=== PATIENT | male | born 1935 | race Caucasian/White ===

== ENCOUNTER 2016-12-15 16:41 | Inpatient (IN) | payer OTHER, MEDICARE ==
[~2016-12-15] VITALS: Ht 172.7 cm; Wt 78.0 kg
[~2016-12-15 16:41] MED LIST: ATENOLOL25 MG PO; DOXAZOSIN MESYLA4 MG PO; FLUVIRIN 245 MCG/0.1 IM
--- NOTE | 2016-12-15 16:52 | NUR ---
PT TO ED FOR C/C OF FALL A FEW HOURS AGO. PT FELL DOWN APPROX 3 OR 4 STEPS AND LANDED FLAT ON HIS BACK. PT DENIES LOC, DENIES HEAD STRIKE. PT HAS BACK PAIN, LEFT ELBOW HEMATOMA WITH LAC THAT HASN'T STOPPED BLEEDING. +BLEEDING IN TRIAGE BUT WELL CONTROLLED.
--- NOTE | 2016-12-15 17:00 | NUR ---
SPOKE WITH ANDREA CASTAÑEDA TO ORDER XRAYS OF RIBS.
--- NOTE | 2016-12-15 17:29 | NUR ---
PT AMBULATED TO AND FROM XRAY WITH STEADY GAIT.
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
--- NOTE | 2016-12-15 17:48 | NUR ---
PATIENT UNSURE OF LAST TETNUS SHOT.
--- NOTE | 2016-12-15 17:59 | RADIOLOGY REPORT ---
EXAMINATION: XR RIBS, BILATERAL CLINICAL INFORMATION: Evaluate for a fracture status post fall. COMPARISON: Multiple priors, most recent CT chest dated 04/15/2014. TECHNIQUE: An AP view of the chest as well as oblique views of the right as well as the left ribs were obtained. AP, bilateral oblique, and lateral views of the left elbow were obtained. FINDINGS: RIBS: Lungs are clear. No consolidation, pneumothorax, or pleural effusion. The cardiomediastinal silhouette and pulmonary vasculature are normal. There is a nondisplaced fracture at the posterolateral aspect of the left seventh rib. No additional fracture is identified. No osseous erosion. LEFT ELBOW: There is a sagittally oriented fracture of the medial epicondyle with approximately 2-3 mm proximal displacement of the fracture fragment. Anterior displacement is noted on the oblique view. No additional fracture is identified. There is mild spurring at the proximal ulna and proximal radius. There is no osseous erosion. There is a small joint effusion. Focal soft tissue swelling is seen overlying the medial epicondyle. There is no abnormal soft tissue calcification. IMPRESSION: RIBS: 1. Nondisplaced fracture at the posterolateral aspect of the left seventh rib. LEFT ELBOW: 1. Mildly displaced, sagittally oriented fracture of the medial epicondyle. Overlying soft tissue swelling. 2. Small joint effusion. 3. Mild ulnotrochlear and radiocapitellar osteoarthritis.
[2016-12-15] MEDS ORDERED: ESCITALOPRAM OX10 MG PO (18:05)
[2016-12-15] MEDS ORDERED: ATENOLOL25 M1 PO (18:06)
[2016-12-15] MEDS ORDERED: DOXAZOSIN MESYLA4 M1 PO (18:06)
[2016-12-15] MEDS ORDERED: AMLODIPINE BES2.5 M1 PO (18:07)
[2016-12-15] MEDS ORDERED: TRAZODONE HCL50 M1 PO (18:08)
[2016-12-15] MEDS ORDERED: ASPIRIN EC325 M2 PO (18:08)
--- NOTE | 2016-12-15 19:05 | NUR ---
labs drawn and sent (blue, 2 gold, lav, pink, curry)
[2016-12-15 19:11] LABS: ABSOLUTE BASOPHIL COUNT 0 /CUMM (0.0-0.2); ABSOLUTE EOSINOPHIL COUNT 0 /CUMM (0.0-0.7); ABSOLUTE GRANULOCYTE CT 13.1 /CUMM (1.4-6.5); ABSOLUTE LYMPH COUNT 0.4 /CUMM (1.2-3.4); ABSOLUTE MONOCYTE COUNT 0.6 /CUMM (0.10-0.60); BASOPHIL % 0.1 % (0.0-2.0); EOSINOPHIL % 0.2 % (0-5); HEMATOCRIT 41.2 % (42-52); MEAN CORPUSCULAR HGB 34.2 PG (27.0-31.0); MEAN CORPUSCULAR HGB CONC 33.9 G/DL (33.0-37.0); MEAN CORPUSCULAR VOLUME 100.9 FL (80.0-94.0); MEAN PLATELET VOLUME 7.7 FL (7.4-10.4); PLATELET COUNT 230 /CUMM (130-400); RBC DISTRIBUTION WIDTH 13.9 % (11.5-14.5); RED BLOOD CELL CT 4.08 /CUMM (4.70-6.10)
--- NOTE | 2016-12-15 19:23 | Cons- Orthopedic ---
EMIL CASTILLO 12/15/161916: General Information and HPI Consulting Request Date of Consult: 12/15/16 Requested By: Emergency department staff Reason for Consult: Left distal humerus open fracture Source of Information: patient Exam Limitations: no limitations History of Present Illness: 81-year-old male status post mechanical fall earlier today presents to the emergency department complaining of left back and arm pain. The patient was seen he reports bringing groceries in from the house when he fell landing on his left side. He does not recall how he fell but denies any prefall dizziness, palpitations, headaches or change in vision. He denies any post fall loss of consciousness. He said after the fall it was difficult for him to get up because he could not catch his breath. Once he is able to catch his breath he is able to get up and then realized he also injured his left elbow. He does remember hitting his elbow during the fall. He had no other complaints the current time. Allergies/Medications Allergies: Coded Allergies: No Known Allergies (12/15/16) Home Med List: Amlodipine Besylate 2.5 MG TABLET 1 TAB PO DAILY HEART/BP (Reported) Aspirin (Ecotrin*) 325 MG TABLET.DR 1 TAB PO 2XW HEART/BLOOD (Reported) Atenolol 25 MG TABLET 0.5 TAB PO DAILY HEART/BP (Reported) Doxazosin Mesylate 4 MG TABLET 1 TAB PO DAILY BP (Reported) Escitalopram Oxalate 10 MG TABLET 1 TAB PO DAILY MENTAL HEALTH (Reported) Trazodone HCl 50 MG TABLET 1 TAB PO QPM SLEEP (Reported) Past History Medical History Cardiovascular: hypertension Psychiatric: insomnia Other Medical Hx: Hard of hearing Surgical History Pertinent Surgical History: hernia repair-inguinal, lipoma resection 2 Psychosocial History Where Do You Live? Home Who Do You Live With? spouse Services at Home: None ETOH Use: occasional use Illicit Drug Use: denies illicit drug use Functional Ability ADLs Independent: dressing, eating, toileting, bathing. Ambulation: independent Employment History Employment: Retired Review of Systems Review of Systems Constitutional: Denies: weakness. Cardiovascular: Denies: chest pain, palpitations. Respiratory: Denies: cough, short of breath. Genitourinary: Denies: dysuria. Exam & Diagnostic Data Vital Signs and I&O Vital Signs Date Time Temp Pulse Resp B/P B/P Pulse O2 O2 Flow FiO2 Mean Ox Delivery Rate 12/157 69 20 178/84 91 Room Air 12/15 1647 98.5 67 15 173/89 93 Room Air Room Air Laboratory Tests 12/15 1902 Chemistry Sodium (137 - 145 mmol/L) 137 Potassium (3.5 - 5.1 mmol/L) 4.1 Chloride (98 - 107 mmol/L) 102 Carbon Dioxide (22 - 30 mmol/L) 24 Anion Gap (5 - 16) 11 BUN (9 - 20 mg/dL) 25 H Creatinine (0.7 - 1.2 mg/dL) 0.6 L Estimated GFR (>60 ml/min) > 60 BUN/Creatinine Ratio (7 - 25 %) 41.7 H Glucose (65 - 99 mg/dL) 108 H Calcium (8.4 - 10.2 mg/dL) 8.7 Total Bilirubin (0.2 - 1.3 mg/dL) 0.8 AST (17 - 59 U/L) 41 ALT (21 - 72 U/L) 53 Alkaline Phosphatase (< 127 U/L) 68 Total Protein (6.3 - 8.2 g/dL) 6.1 L Albumin (3.5 - 5.0 g/dL) 3.8 Globulin (1.9 - 4.2 gm/dL) 2.3 Albumin/Globulin Ratio (1.1 - 2.2 %) 1.7 Hematology CBC w Diff NO MAN DIFF REQ WBC (4.8 - 10.8 /CUMM) 14.1 H RBC (4.70 - 6.10 /CUMM) 4.08 L Hgb (14.0 - 18.0 G/DL) 14.0 Hct (42 - 52 %) 41.2 L MCV (80.0 - 94.0 FL) 100.9 H MCH (27.0 - 31.0 PG) 34.2 H RDW (11.5 - 14.5 %) 13.9 Plt Count (130 - 400 /CUMM) 230 MPV (7.4 - 10.4 FL) 7.7 Gran % (42.2 - 75.2 %) 93.0 H Lymphocytes % (20.5 - 51.1 %) 2.5 L Monocytes % (1.7 - 9.3 %) 4.2 Eosinophils % (0 - 5 %) 0.2 Basophils % (0.0 - 2.0 %) 0.1 Absolute Granulocytes (1.4 - 6.5 /CUMM) 13.1 H Absolute Lymphocytes (1.2 - 3.4 /CUMM) 0.4 L Absolute Monocytes (0.10 - 0.60 /CUMM) 0.6 Absolute Eosinophils (0.0 - 0.7 /CUMM) 0 Absolute Basophils (0.0 - 0.2 /CUMM) 0 PUBS MCHC (33.0 - 37.0 G/DL) 33.9 Chest and rib x-rays showing1. Nondisplaced fracture at the posterolateral seventh rib X-rays of left upper extremity showing a distal humerus fracture involving the medial epicondyle Physical Exam: Gen.: Alert and in no obvious distress Skin: Warm and dry without jaundice Head: Normocephalic and atraumatic Neck: Supple with no lymphadenopathy Chest: With some palpable tenderness posterior left chest Cardiac: S1-S2 regular Pulmonary: Bilateral breath sounds were equal with good exchange there were no wheezes, rales, or rhonchi. Abdomen: Soft, nontender, bowel sounds positive. Extremities: Left upper extremity with approximately 2-1/2 cm laceration to the medial epicondyle. There was moderate surrounding edema. The elbow joint was tender to palpation. Gross motor and sensory were intact and there was a palpable radial pulse Bilateral lower extremities are warm without calf tenderness or significant edema. Assessment/Plan Assessment/Plan Assessment: 81-year-old male status post mechanical fall who sustained a left rib fracture and an open distal humerus fracture. Case was discussed with Dr. Facundo Reyes. Plan: Given the nature of open fractures the patient will be brought to the operating theater soon for a washout and pinning of the fracture. The patient's will be admitted to the medical service for optimization and management postoperatively. The patient will likely require 24 hours of IV antibiotics. Please keep the patient nothing by mouth IV antibiotics Respiratory management and treatment of rib fracture to prevent pneumonia PRN pain medication GI and DVT prophylaxis Follow-up pending laboratory studies Problem List: 1. Fracture, humerus, medial epicondyle Consult Acknowledgment - Thank you for your consult request. FACUNDO REYES MD 12/16/16 0751: Exam & Diagnostic Data Vital Signs and I&O Vital Signs Date Time Temp Pulse Resp B/P B/P Pulse O2 O2 Flow FiO2 Mean Ox Delivery Rate 12/16 0654 98.7 63 20 152/70 92 Room Air 12/16 0047 Nasal 2.0L Cannula 12/15 2309 98.0 72 18 160/80 94 Nasal 2.0L Cannula 12/15 1955 97.5 70 18 178/84 91 12/15 1917 69 20 178/84 91 Room Air 12/15 1647 98.5 67 15 173/89 93 Room Air Room Air Intake & Output 12/16 0800 12/16 0000 12/15 1600 12/15 0800 12/15 0000 12/14 1600 Intake Total Output Total Balance Patient 172 lb 172 lb Weight Weight Reported by Patient Reported by Patient Measurement Method Assessment/Plan Consult Acknowledgment - Thank you for your consult request. Attending MD Review Statement Attending Statement Attending Assessment/Plan: Left grade 1 open medial epicondyle fracture. Neurovascularly intact. Plan for I+D/ORIF left medial epicondyle. Risks and benefits discussed with patient at length.
[2016-12-15 19:41] LABS: WHITE BLOOD CELL COUNT 14.1 /CUMM (4.8-10.8)
--- NOTE | 2016-12-15 19:45 | NUR ---
PRE-OP SCRUB PROVIDED.
--- NOTE | 2016-12-15 20:07 | History & Physical ---
JAGUAR PRIETO 12/15/16 2007: General Information and HPI MD Statement: I have seen and personally examined CECILE SHAH and documented this H&P. The patient is a 81 year old M who presented with a patient stated chief complaint of fall Source of Information: patient Exam Limitations: no limitations History of Present Illness: 81 year old very pleasant gentleman from home with pmh for HTN, b/l glaucoma, Aortic aneurysm came to ED after an unwitnessed fall at home. Around 2 pm in the afternoon he was going upstairs from the cellar while carrying things in both arms when he fell backwards about 3-4 steps and landed on his back. After 5-10 mins he got up by himself and went upstairs to watch TV. His was concerned about the about of bleeding from his left elbow and told him to come to ER. States that he was aware of falling, denies preceding symptoms of chest pain, palpatations, shortness of breath, dizziness. He is very active at baseline he walks 4-5 miles daily with a cane and continue to cook and cut his grass. Denies recent fever, cough or bowel and bladder symptoms. Allergies/Medications Allergies: Coded Allergies: No Known Allergies (12/15/16) Home Med list Amlodipine Besylate 2.5 MG TABLET 1 TAB PO DAILY HEART/BP (Reported) Aspirin (Ecotrin*) 325 MG TABLET.DR 1 TAB PO 2XW HEART/BLOOD (Reported) Atenolol 25 MG TABLET 0.5 TAB PO DAILY HEART/BP (Reported) Doxazosin Mesylate 4 MG TABLET 1 TAB PO DAILY BP (Reported) Escitalopram Oxalate 10 MG TABLET 1 TAB PO DAILY MENTAL HEALTH (Reported) Trazodone HCl 50 MG TABLET 1 TAB PO QPM SLEEP (Reported) Compliance With Home Meds: GOOD Past History Travel History Traveled to [place] past 21 day No Medical History Cardiovascular: hypertension Psychiatric: insomnia Other Medical Hx: Hard of hearing Pneumonia Vaccine: 06/23/12 Influenza Vaccine: 02/21/14 Tetanus Vaccine: 12/15/16 Surgical History Surgical History: non-contributory Past Family/Social History Psychosocial History Where do you live? Home Who Do You Live With? spouse Services at Home: None ETOH Use: occasional use Illicit Drug Use: denies illicit drug use Functional Ability ADLs Independent: dressing, eating, toileting, bathing. Ambulation: independent Employment History Employment Retired Review of Systems Review of Systems Constitutional: Denies: chills, diaphoresis, fever, malaise, weakness, unexplained weight loss. Cardiovascular: Denies: chest pain, edema, orthopena, palpitations, peripheral edema, syncope. Respiratory: Denies: cough, hemoptysis, orthopnea, short of breath, sputum production, stridor, wheezing. GI: Denies: abdominal pain, bloating, constipation, diarrhea, distention, bowel incontinence, melena, nausea, bloody stool, changes in stool, vomiting, steatorrhea. Exam & Diagnostic Data Last 24 Hrs of Vital Signs/I&O Vital Signs Date Time Temp Pulse Resp B/P B/P Pulse O2 O2 Flow FiO2 Mean Ox Delivery Rate 12/16 0047 Nasal 2.0L Cannula 12/15 2309 98.0 72 18 160/80 94 Nasal 2.0L Cannula 12/15 1955 97.5 70 18 178/84 91 12/15 1917 69 20 178/84 91 Room Air 12/15 1647 98.5 67 15 173/89 93 Room Air Room Air Intake & Output 12/16 0800 12/16 0000 12/15 1600 Intake Total Output Total Balance Patient 172 lb 172 lb Weight Weight Reported by Patient Reported by Patient Measurement Method Physical Exam General Appearance Alert, Oriented X3, Cooperative, No Acute Distress HEENT Atraumatic, PERRLA, EOMI, Mucous Membr. moist/pink Neck Supple Cardiovascular Normal S1, Normal S2 Lungs Clear to Auscultation, Normal Air Movement Abdomen Normal Bowel Sounds, Soft, No Tenderness Neurological Normal Speech, Cranial Nerves 3-12 NL Extremities No Edema, Normal Pulses, left elbow in splint and sling Diagnostic Data Other Results XRY-ELBOW 3 OR MORE VIEWS, L; XRY-RIBS BILATERAL FINDINGS: RIBS: Lungs are clear. No consolidation, pneumothorax, or pleural effusion. The cardiomediastinal silhouette and pulmonary vasculature are normal. There is a nondisplaced fracture at the posterolateral aspect of the left seventh rib. No additional fracture is identified. No osseous erosion. LEFT ELBOW: There is a sagittally oriented fracture of the medial epicondyle with approximately 2-3 mm proximal displacement of the fracture fragment. Anterior displacement is noted on the oblique view. No additional fracture is identified. There is mild spurring at the proximal ulna and proximal radius. There is no osseous erosion. There is a small joint effusion. Focal soft tissue swelling is seen overlying the medial epicondyle. There is no abnormal soft tissue calcification. IMPRESSION: RIBS: 1. Nondisplaced fracture at the posterolateral aspect of the left seventh rib. LEFT ELBOW: 1. Mildly displaced, sagittally oriented fracture of the medial epicondyle. Overlying soft tissue swelling. 2. Small joint effusion. 3. Mild ulnotrochlear and radiocapitellar osteoarthritis. Assessment/Plan Assessment: 81 year old very pleasant gentleman from home with pmh for HTN, b/l glaucoma, Aortic aneurysm came to ED after an unwitnessed fall at home. Labs pertinent for leukocytosis, Macrocytosis. Imaging significant for nondisplaced fracture of posterolateral aspect of 7th rib and displaced medical epicondyle fracture. ED course: recieved Tetanus vaccine and given one dose of Ancef. As Ranked By This Provider Problem List: 1. Open fracture of medial epicondyle of humerus Assessment/Plan currently s/p left humerus ORIF, Tolerated the surgery well. Per surgery will continue with 24 hours of IV antibiotics Ancef, remain in splint and sling until seen by orthopedic surgeon and eventual discharge with 3 days of oral Keflex. outpatient f/up with Dr. Reyes in one week upon discharge. Pain control with IV tyelenol and IV morphine 2. Left rib fracture Assessment/Plan adequate pain control Incentive spirometry 3. Hypertension Assessment/Plan continue home meds of Norvasc, Atenolol, Doxazosin and ASA Heart healthy diet 4. Fall Assessment/Plan f/up vit B12 check orthostats 5. DVT prophylaxis Assessment/Plan sc heparin and ALP 6. Full code status Core Measures/Miscellaneous Acute Coronary Syndrome ACS Diagnosis: No Cerebrovascular Accident CVA/TIA Diagnosis: No Congestive Heart Failure CHF Diagnosis: No VTE (View Protocol) VTE Risk Factors: Acute medical illness, Age > 40 No Mech VTE prophylaxis d/t: No contraindications No VTE Pharm Prophylaxis d/t: No contraindications VTE Diagnosis: No VTE Type: NONE VTE Confirmed by (Test): NONE Sepsis (View Protocol) Severe Sepsis Present: No Septic Shock Septic Shock Present: No Miscellaneous Documentation Attending Case Discussed With: CHERRY ANTONIO MD Primary Care Physician: Lisa BENOIT MD Patient sees these Specialists Dr. Benoit Level of Patient Care: General Medicine CHERRY ANTONIO 12/16/16 0244: Attending MD Review Statement Attending Statement Attending MD Statement: examined this patient, discuss w/resident/PA/AUTOMATION QA TESTER, agreed w/resident/PA/AUTOMATION QA TESTER, reviewed EMR data (avail), reviewed images, amended to note Attending Assessment/Plan: CC: fall PMH: Prostate cancer, HTN, thoracic aortic aneurysm, anxiety Patient came to ER, his drove him, after he had a fall. Patient was walking to the grocery bags in his hands, when he was on fourth step he turned a little and then fell down on left side of his buttock. He had open wound on left elbow which was continuously bleeding, so his insisted him to come to ER. Patient denies any head trauma. No history of chest pain, palpitations, presyncope before or after fall. No loss of consciousness. Patient does not have balance problems. Vitals: Afebrile, HR, RR, O2 saturation in acceptable range, mildly hypertensive. On examination: A O 3, cooperative, no acute distress, neck supple, JVD normal, no lymphadenopathy, mucosa dry, no focal neurological deficit, left upper extremity in sling, no dependent edema, no obvious skin rashes or inflammation CVS: S1-S2, RRR. RS: Clear to auscultate bilaterally. Abdomen: Soft, NT, ND, bowel sounds present. Labs: WBC 14.1, neutrophils 93%, hemoglobin 14.0, MCV 100.4, BUN 25, creatinine 0.6, otherwise BMP and LFT unremarkable RAD - XRY-ELBOW 3 OR MORE VIEWS, L; XRY-RIBS BILATERAL 1. Mildly displaced, sagittally oriented fracture of the medial epicondyle. Overlying soft tissue swelling. 2. Small joint effusion. 3. Mild ulnotrochlear and radiocapitellar osteoarthritis. 4. Nondisplaced fracture at the posterolateral aspect of the left seventh rib. A and P 81-year-old male with past medical history significant for hypertension, prostate cancer, stable thoracic aortic aneurysm presented to ER after accidental fall. Patient did not lose consciousness, no head trauma. Patient is found to have nondisplaced seventh left posteriorolateral rib fracture. He was also found to have open mildly displaced fracture of medial epicondyle. Patient underwent left elbow irrigation and debridement, left ulnar nerve release, open reduction and internal fixation of medial condyle. Patient tolerated the procedure well, currently does not complain of any pain. Patient does not appear to be in respiratory distress or a symmetrical chest movements. + Fall + History of hypertension + Left seventh rib fracture + Left medial epicondyle fracture S/P surgery - Admit to general medicine - Continue gentle hydration for 1 L then discontinue - Resume diet according to surgery recommendation - Adequate pain control - Continue all his home medications include amlodipine, aspirin, atenolol - Check orthostatic vitals in a.m. - Check B12 level - OT PT evaluation - Continue IV antibiotics as recommended by surgery SHAUN WATSON MD 12/16/16 0253: Resident Review Statement Resident Statement: examined this patient, discussed with international account manager, agreed with international account manager Other Findings: 81-year-old male with a past medical history of hypertension and thoracic aortic aneurysm who presents status post a mechanical fall after he tripped and fell down a flight of stairs while carrying heavy boxes. Patient says he fell on his back mostly onto the left side with resulting laceration and pain to his left elbow and pain to his left side. He denies dizziness, LOC, Headstrike, blurry of vision or lightheadedness surrounding the fall. EXAM TYPE: RAD - XRY-ELBOW 3 OR MORE VIEWS, L; XRY-RIBS BILATERAL IMPRESSION: RIBS: 1. Nondisplaced fracture at the posterolateral aspect of the left seventh rib. LEFT ELBOW: 1. Mildly displaced, sagittally oriented fracture of the medial epicondyle. Overlying soft tissue swelling. 2. Small joint effusion. 3. Mild ulnotrochlear and radiocapitellar osteoarthritis. Assessment 1. Left open humeral fracture due to mechanical fall status post left humerus ORIF 2. Nondisplaced fracture of the left seventh rib 3. Hypertension 4. Stable thoracic aortic aneurysm Plan Admit to general medicine floor Patient is status post surgical washout and ORIF; Left arm in splint Adequate Pain management PT/OT-please follow surgical recs Incentive spirometry/TRC eval IV Ancef for 24 hours; 3 days of by mouth Keflex per surgical team; F/O with ortho Dr. Reyes on discharge in one week Heart healthy Diet DNR/DNI Alps for DVT ppx
--- NOTE | 2016-12-15 21:28 | Operative Report ---
Operative/Inv Procedure Report Surgery Date: 12/15/16 Name of Procedure: Left elbow irrigation debridement, ulnar nerve release, open reduction internal fixation medial epicondyle Pre-Operative Diagnosis: Left open medial epicondyle fracture Post-Operative Diagnosis: Left open medial epicondyle fracture Estimated Blood Loss: less than 50ml Surgeon/Local Area Network Administrator: Raj BLANCA Anesthesia: laryngeal mask airway Complications: None Condition: Stable to PACU Operative Indication: This is an 81-year-old male who had a fall at home today. He injured his left elbow. He was noted to have an open laceration adjacent to the fracture. Risks and benefits of the procedure were discussed with the patient at length. Risks include but are not limited to nerve damage, muscle damage, infection, blood loss, blood clots, pulmonary embolus, and even . The patient agreed to the above risks and elected to proceed with surgery. Operative/Procedure Note Note: The patient was placed supine on the operating room table. A tourniquet was applied. The upper extremity was prepped and draped in normal sterile fashion. A timeout was performed before the incision. The site marking was visualized before incision. After the arm was prepped and draped, an Esmarch was used to exsanguinate the extremity. The tourniquet was inflated. An incision was made overlying the medial epicondyle. The laceration was incorporated into the incision. The wound was copiously irrigated. Dissection was performed down to the fracture site. Care was taken to protect the neurovascular structures. The ulnar nerve was identified and protected. The ulnar nerve was protected with a vessel loop and released at the cubital tunnel to free up any adhesions and also to allow mobilization for reduction. The fracture site was identified and debrided of any soft tissue. The fracture site was copiously irrigated. It was then reduced and pinned in place with a TWO K wireS. Over the K wire the near cortex was drilled. A 4.0 mmX 46 mm partially threaded screw was then placed which served to reduce the fracture quite nicely. The wound was copiously irrigated. The tourniquet was let down. No bleeding vessels were identified. The the incision was closed with 2-0 Vicryl suture and 3-0 nylon suture. A dry sterile dressing was placed and patient was placed in a splint and sling and transferred to PACU in stable condition.
--- NOTE | 2016-12-15 22:22 | PN- Orthopedic ---
Subjective Subjective: The patient was seen this evening postoperatively. He reports that his pain is under adequate control and has no other complaints the current time. Objective Vital Signs and I&Os Vital Signs Date Time Temp Pulse Resp B/P B/P Pulse O2 O2 Flow FiO2 Mean Ox Delivery Rate 12/15 1954 97.5 70 18 178/84 91 12/15 1917 69 20 178/84 91 Room Air 12/15 1647 98.5 67 15 173/89 93 Room Air Room Air Physical Exam: Gen.: Alert and in no obvious distress Skin: Warm and dry Extremities: Left upper extremity in splint and sling. Gross motor and sensory are intact. There remains a palpable radial pulse. Bilateral external is warm without calf tenderness or significant edema. Assessment/Plan Assessment/Plan Assessment: 81-year-old male status post left humerus ORIF. Postoperatively patient is progressing as expected, his pain is under adequate control and he is nonfocal exam. Recommendations: 24 hours of IV antibiotics Ancef Remain in splint and sling until seen by orthopedic surgeon PRN pain medication GI and DVT prophylaxis Discharged with 3 days of oral Keflex and to make an appointment to see Dr. Reyes in one week Continue care per primary team Total respiratory care
[2016-12-15 23:09] VITALS: BP 160/80; BP 160/870
--- NOTE | 2016-12-15 23:30 | RADIOLOGY REPORT ---
EXAMINATION: XR ELBOW, LEFT CLINICAL INFORMATION: Open reduction and internal fixation of distal humerus fracture COMPARISON: Same day elbow exam TECHNIQUE: Fluoroscopic images of the left elbow, 4 images provided. Fluoroscopic assistance provided for Dr. Raj Reyes. The KVP was 61. MAS is 1.8. The fluoroscopy time is 44.7 seconds. FINDINGS: A vertical fracture of the medial epicondyles of the distal humerus is transfixed with a lag screw. There is improved anatomic alignment on the final images. No other additional findings. IMPRESSION: Status post open reduction internal fixation of displaced medial epicondyle fracture.
--- NOTE | 2016-12-16 02:46 | Admission Certification ---
Admission Certification Certification Statement - As attending physician, I certify that at the time of - admission, based on clinical presentation, severity of - symptoms, need for further diagnostic testing and - therapeutic interventions, and risk of adverse outcomes - without in-hospital treatment, in my clinical assessment, - this patient requires an acute hospital stay for a minimum - of two nights or longer. I have also considered psychsocial - factors such as support system, advanced age, financial - issues, cognitive issues, and failed out-patient treatments, - past re-admission history, safety of patient, and lack of - compliance as applicable. Specific rationale supporting this admission is: Mechanical fall, left medial epicondyle open fracture
[2016-12-16 06:54] VITALS: BP 152/70
--- NOTE | 2016-12-16 06:59 | PN- Housestaff ---
NIEVES FERGUSON,[facility] 12/16/16 0658: Subjective Follow-up For: Posterolateral 7th Rib Fracture Subjective: Mr. Banks was seen and examined this morning. Resting comfortably in bed. Patient states that he currently feels better. Left arm continues to remain in a sling. He states that he is currently pain-free and is content with pain medications regimen. States that he would like his diet advanced and feels that mouth is very dry. Denies any fever, chills, nausea, vomiting. Review of Systems Constitutional: Reports: see HPI. Objective Last 24 Hrs of Vital Signs/I&O Vital Signs Date Time Temp Pulse Resp B/P B/P Pulse O2 O2 Flow FiO2 Mean Ox Delivery Rate 12/16 0654 98.7 63 20 152/70 92 Room Air 12/16 0047 Nasal 2.0L Cannula 12/15 2309 98.0 72 18 160/80 94 Nasal 2.0L Cannula 12/15 1955 97.5 70 18 178/84 91 12/15 1917 69 20 178/84 91 Room Air 12/15 1647 98.5 67 15 173/89 93 Room Air Room Air Intake & Output 12/16 1600 12/16 0800 12/16 0000 Intake Total 570 Output Total 200 Balance 370 Intake, IV 450 Intake, Oral 120 Output, Urine 200 Patient 78.018 kg 78.018 kg Weight Weight Reported by Patient Reported by Patient Measurement Method Physical Exam General Appearance: Alert, Oriented X3, Cooperative Cardiovascular: Normal S1, Normal S2 Lungs: Clear to Auscultation Abdomen: Normal Bowel Sounds, Soft, No Tenderness Neurological: Normal Speech Extremities: No Edema, Normal Pulses, Left arm in sling. Splint intact. Minimal Drainage. Vascular: Normal Pulses Current Medications: Current Medications Sig/Sky Start time Last Medication Dose Route Stop Time Status Admin Acetaminophen 650 MG Q6P PRN 12/15 2330 AC PO Acetaminophen 1,000 MG Q6P PRN 12/15 2330 AC IV Amlodipine Besylate 2.5 MG DAILY 12/16 1000 AC PO Atenolol 12.5 MG DAILY 12/16 1000 AC PO Cefazolin Sodium 1,000 MG Q8H 12/16 0800 AC IV 12/17 0001 Cefazolin Sodium 0 .STK-MED ONE 12/15 1916 DC .ROUTE Cefazolin Sodium 1,000 MG ONCE ONE 12/15 1900 DC 12/15 IV 12/15 1901 1917 Cephalexin 500 MG Q6 12/17 0600 AC PO 12/19 0559 Cephalexin 500 MG Q6 12/15 2359 DC 12/16 PO 12/17 2300 0109 Doxazosin Mesylate 4 MG DAILY 12/16 1000 AC PO Escitalopram Oxalate 10 MG DAILY 12/16 1000 AC PO Heparin Sodium 5,000 UNIT Q8 12/15 2333 DC 12/16 (Porcine) SC 0028 Hydromorphone HCl 2 MG .STK-MED ONE 12/15 2237 DC IM 12/15 2238 Lidocaine 0 .STK-MED ONE 12/15 183 DC .ROUTE Morphine Sulfate 2 MG Q6-PRN PRN 12/15 2345 AC IV Morphine Sulfate 0 .STK-MED ONE 12/15 1914 DC .ROUTE Morphine Sulfate 4 MG ONCE ONE 12/15 190 DC IV 12/15 190 Omeprazole 40 MG DAILY AC 12/16 0700 AC 12/16 PO 0538 Sodium Chloride 1,000 ML .[id number] 12/15 2330 AC 12/16 IV 12/16 1249 0028 Tetanus/Diphtheria 0.5 ML ONCE ONE 12/15 1914 DC 12/15 Toxoids Adsorbed IM 12/15 191 1906 Tetanus/Diphtheria 0 .STK-MED ONE 12/15 1839 DC Toxoids Adsorbed IM Trazodone HCl 50 MG QPM 12/16 2200 AC PO Last 24 Hrs of Lab/Julius Results Last 24 Hrs of Labs/Mics: Laboratory Tests 12/16/16621: Anion Gap 6, Estimated GFR > 60, BUN/Creatinine Ratio 31.7 H, CBC w Diff Pending, WBC Pending, RBC Pending, Hgb Pending, Hct Pending, MCV Pending, MCH Pending, RDW Pending, Plt Count Pending, MPV Pending, Gran % Pending, Lymphocytes % Pending, Monocytes % Pending, Eosinophils % Pending, Basophils % Pending, Absolute Granulocytes Pending, Absolute Lymphocytes Pending, Absolute Monocytes Pending, Absolute Eosinophils Pending, Absolute Basophils Pending, PUBS MCHC Pending 12/15/16 190: Anion Gap 11, Estimated GFR > 60, BUN/Creatinine Ratio 41.7 H, Glucose 108 H, Calcium 8.7, Total Bilirubin 0.8, AST 41, ALT 53, Alkaline Phosphatase 68, Total Protein 6.1 L, Albumin 3.8, Globulin 2.3, Albumin/Globulin Ratio 1.7, Vitamin B12 596, Folate 8.6, CBC w Diff NO MAN DIFF REQ, RBC 4.08 L, MCV 100.9 H, MCH 34.2 H, RDW 13.9, MPV 7.7, Gran % 93.0 H, Lymphocytes % 2.5 L, Monocytes % 4.2, Eosinophils % 0.2, Basophils % 0.1, Absolute Granulocytes 13.1 H, Absolute Lymphocytes 0.4 L, Absolute Monocytes 0.6, Absolute Eosinophils 0, Absolute Basophils 0, PUBS MCHC 33.9 Assessment/Plan Assessment: Mr Banks is an 81 year old pleasant gentleman pmh for HTN, b/l glaucoma, Aortic aneurysm came to ED after an unwitnessed fall at home. Labs pertinent for leukocytosis, Macrocytosis. Imaging significant for nondisplaced fracture of posterolateral aspect of 7th rib and displaced medical epicondyle fracture. ED course: recieved Tetanus vaccine and given one dose of Ancef. Patient currently admitted in general medicine. #Open fracture of medial epicondyle of humerus Currently s/p left humerus ORIF, Tolerated the surgery well. Per surgery will continue with 24 hours of IV antibiotics Cefazolin. Keep arm in splint and sling until seen by orthopedic surgeon, outpatient f/up with Dr. Reyes in one week upon discharge. Pain control with IV tyelenol and IV morphine PT and OT evaluation. Zofran for nausea. #Left rib fracture Adequate pain control Incentive spirometry, present at bedside encouraged use. #History of glaucoma Latanoprost 0.005% OPH solution 1 drop in both eyes. #Hypertension Continue home meds of Norvasc, Atenolol, Doxazosin and ASA #Fall Vit B12 Check orthostats. Last blood pressure 160/80 patient lying. 178/84 when patient sitting. #DVT prophylaxis SC heparin and ALPS #Disposition Likely will be discharged home need to ensure home is safe for patient to return to. #Full code status Problem List: 1. Fracture, humerus, medial epicondyle 2. Open fracture of medial epicondyle of humerus 3. Left rib fracture 4. Fall 5. Hypertension 6. DVT prophylaxis 7. Full code status Pain Ratin Pain Location: Left Arm Pain Goal: Remain pain free Pain Plan: Morphine Tomorrow's Labs & Rationales: No Labs - Pending DC JAYDE WOODWARD MD 12/16/16 1134: Attending MD Review Statement Attending Statement Attending MD Statement: examined this patient, discuss w/resident/PA/BRAND MANAGER, agreed w/resident/PA/BRAND MANAGER, reviewed EMR data (avail) Attending Assessment/Plan: 81M PMH hypertension, prostate cancer, stable thoracic aortic aneurysm admitted with mechanical fall and left rib and open left elbow fracture s/p washout and ORIF. Patient felt nauseous this morning but is otherwise well, no evidence of infection, unable to ambulate this morning due to nausea, hemodynamically stable , labs reviewed. 1. Fall, initial 2. Open left elbow fracture s/p ORIF 3. Left rib fracture 4. Intractable nausea Plan - Continue on general medicine (patient is a full admission) - Continue Cefazolin - Follow orthopedic recommendations - Continue home medications - PT eval - Zofran PRN - DVT PPx
--- NOTE | 2016-12-16 07:23 | PN- Orthopedic ---
Subjective Subjective: POD#1 S/P ORIF OPEN FRACTURE LEFT MEDIAL EPICONDYLE FX AWAKE ALERT COMFORTABLE NO MAJOR ISSUES OVERNIGHT DENEIS CP, SOB, NO N+V WITH DIET Objective Vital Signs and I&Os Vital Signs Date Time Temp Pulse Resp B/P B/P Pulse O2 O2 Flow FiO2 Mean Ox Delivery Rate 12/16 0654 98.7 63 20 152/70 92 Room Air 12/16 0047 Nasal 2.0L Cannula 12/15 2309 98.0 72 18 160/80 94 Nasal 2.0L Cannula 12/15 1955 97.5 70 18 178/84 91 12/15 1917 69 20 178/84 91 Room Air 12/15 1647 98.5 67 15 173/89 93 Room Air Room Air Intake & Output 12/16 0800 12/16 0000 12/15 1600 12/15 0800 12/15 0000 12/14 1600 Intake Total Output Total Balance Patient 172 lb 172 lb Weight Weight Reported by Patient Reported by Patient Measurement Method Physical Exam: LEFT UE: DISTAL M/R/U MOTOR/SENSORY GROSSLY INTACT MINIMAL DRAINAGE ON DRSG/DRY SPLINT INTACT, ARM IN SLING Assessment/Plan Assessment/Plan ORTHO STABLE PAIN CONTROLLED WITH PO PAIN MEDS RECEIVED ONE DOSE OF PO KEFLEX 500MG POST OP 12/17 @ MIDNIGHT, SCHEDULED FOR FIRST DOSE OF KEFZOL 2G AT 8AM. WILL NEED A TOTAL OF THREE DAYS IV/PO ABX PLAN DONT NOT REMOVE SPLINT SLING FOR COMFORT FROM ORTHO STANDPOINT, PROB D/C LATER TODAY WITH TWO DOSES OF IV KEFZOL AND CONT KEFLEX PO FRO THREE DAYS ON D/C F/U W/ DR ZENG IN ON WEEK.
[2016-12-16 08:38] LABS: ABSOLUTE BASOPHIL COUNT 0 /CUMM (0.0-0.2); ABSOLUTE EOSINOPHIL COUNT 0.1 /CUMM (0.0-0.7); ABSOLUTE GRANULOCYTE CT 8.8 /CUMM (1.4-6.5); ABSOLUTE LYMPH COUNT 0.5 /CUMM (1.2-3.4); ABSOLUTE MONOCYTE COUNT 0.7 /CUMM (0.10-0.60); BASOPHIL % 0.3 % (0.0-2.0); EOSINOPHIL % 1.1 % (0-5); HEMATOCRIT 36.3 % (42-52); MEAN CORPUSCULAR HGB 34.4 PG (27.0-31.0); MEAN CORPUSCULAR HGB CONC 34.2 G/DL (33.0-37.0); MEAN CORPUSCULAR VOLUME 100.6 FL (80.0-94.0); MEAN PLATELET VOLUME 8.2 FL (7.4-10.4); RBC DISTRIBUTION WIDTH 13.6 % (11.5-14.5); WHITE BLOOD CELL COUNT 10.1 /CUMM (4.8-10.8)
[2016-12-16 08:59] LABS: GRANULOCYTE % 86.7 % (42.2-75.2); PLATELET COUNT 196 /CUMM (130-400)
--- NOTE | 2016-12-16 11:07 | PN-Observation ---
Observation Note Observation Note _ I have personally examined CECILE SHAH. him disposition is uncertain at this time. Before a determination can be made, he requires continued observation for the following reasons Mr. Banks underwent ORIF procedure on 12/15/2016. He needs to currently be observed for the next 24 hours to ensure that he develops acute reactions to anesthesia and remain hemodynamically stable. He also needs to be evaluated by physical therapy to ensure safe ambulation. His home situation will also need to be assessed to ensure that he is safe for disposition there. Subjective Subjective: Mr. Banks was seen and examined this morning. Resting comfortably in bed. Patient states that he currently feels better. Left arm continues to remain in a sling. He states that he is currently pain-free and is content with pain medications regimen. States that he would like his diet advanced and feels that mouth is very dry. Denies any fever, chills, nausea, vomiting.
--- NOTE | 2016-12-16 11:36 | NUR ---
NSG NOTE: PATIENT WORKED WITH PT THIS AM AND AMBULATED FROM BED TO RECLINER; PATIENT BECAME NAUSEAS FOR A MOMENT AND IT RESOLVED; CLIMATOLOGY PROFESSOR JEWELL AWARE; PATIENT DOING WELL SITTING UP IN RECLINER; RN ADMINISTERED PO TYLENOL FOR COMPLAINT OF BACK PAIN 10/30; PATIENT REMAINS ON 2LNC AND IS BEING SEEN BY RESPIRATORY TO TITRATE; IVF RUNNING PER ORDER; WILL CONT TO MONITOR
--- NOTE | 2016-12-16 13:16 | Patient Discharge Instructions ---
Discharge Instructions General Discharge Information You were seen/treated for: ORIF left medial epicondyle. You had these procedures: I+D/ORIF left medial epicondyle. Watch for these problems: If you feel weak, experience chest pain, shortness breath, worsening cough or increased weakness please come back to the emergency department. Other signs to watch out for include: fever, chills, nausea and vomiting. Special Instructions: Please follow-up with your primary care physician within 7 days of discharge. Please inform your primary care physician of this admission to the hospital. Please follow-up with Dr. Reyes within 7 days. We have given you a referral. Diet Continue normal diet: Yes Activity Full Activity/No Limits: No Activity Self Limited: Yes (As Tolerated) Acute Coronary Syndrome Inclusion Criteria At DC or during hospital stay patient has or had the following: ACS DIAGNOSIS No Discharge Core Measures Meds if any: Prescribed or Continued at Discharge Meds if any: NOT Prescribed or Continued at Discharge Congestive Heart Failure Inclusion Criteria At DC or during hospital stay patient has or had the following: CHF DIAGNOSIS No Discharge Core Measures Meds if any: Prescribed or Continued at Discharge Meds if any: NOT Prescribed or Continued at Discharge Cerebrovascular accident Inclusion Criteria At DC or during hospital stay patient has or had the following: CVA/TIA Diagnosis No Discharge Core Measures Meds if any: Prescribed or Continued at Discharge Meds if any: NOT Prescribed or Continued at Discharge Venous thromboembolism Inclusion Criteria VTE Diagnosis No VTE Type NONE VTE Confirmed by (Test) NONE Discharge Core Measures - Per Current guidelines, there needs to be overlap - treatment for the first 5 days of Warfarin therapy. - If discharged on Warfarin prior to 5 days of - overlap therapy, the patient will need to be - assessed for post discharge needs including - *Post discharge parental anticoagulation - *Warfarin and/or parental anticoagulation education - *Follow up date to check INR post discharge At least 5 days overlap therapy as Inpatient No Meds if any: Prescribed or Continued at Discharge Note: Overlap Therapy is Warfarin and Anticoagulant Meds if any: NOT Prescribed or Continued at Discharge
[2016-12-16 14:33] VITALS: BP 130/72
[2016-12-16] MEDS ORDERED: PERCOCET 5-3251 EACH PO (14:46)
[2016-12-16] MEDS ORDERED: KEFLEX500 M1 PO (14:46)
[2016-12-16 22:22] VITALS: BP 150/70
[2016-12-17] MEDS ORDERED: KEFLEX500 M1 PO ×2 (06:51→10:22)
--- NOTE | 2016-12-17 06:51 | PN- Housestaff ---
See Addendum Subjective Follow-up For: Fracure of posterolateral aspect of the seventh rib. Subjective: Mr. Banks was seen and examined this morning. He states that he feels good. He states he was able to get some rest overnight. Continues to endorse left- sided back pain. Pain is rated a 5 out of 10 in severity. Patient states that he doesn't feel the pain is getting worse. He denies any fever, chills, nausea, vomiting. Tolerating by mouth intake well although reports a decreased appetite. Expresses desire to be discharged today. Review of Systems Constitutional: Reports: see HPI. Objective Last 24 Hrs of Vital Signs/I&O Vital Signs Date Time Temp Pulse Resp B/P B/P Pulse O2 O2 Flow FiO2 Mean Ox Delivery Rate 12/17 0830 60 12/17 0830 164/88 12/17 0740 98.9 60 20 164/88 92 Room Air 12/16 2222 98.9 60 19 150/70 93 Room Air 12/16 1433 97.6 58 20 130/72 94 Room Air 12/16 0936 160/84 12/16 0935 Nasal 2.0L Cannula 12/16 0935 160/84 12/16 0933 94 Nasal 2.0L Cannula Intake & Output 12/17 1600 12/17 0800 12/17 0000 Intake Total 100 360 Output Total 800 300 Balance -700 60 Intake, IV 100 Intake, Oral 360 Output, Urine 800 300 Physical Exam General Appearance: Alert, Oriented X3, Cooperative Cardiovascular: Normal S1, Normal S2 Lungs: Clear to Auscultation Abdomen: Normal Bowel Sounds, Soft, No Tenderness Neurological: Normal Speech, Strength at 5/5 X4 Ext Extremities: No Clubbing, No Cyanosis, No Edema, Left exteremity in a cast, dry, dressing intact. Finger movements intact and WNL. Current Medications: Current Medications Sig/Sky Start time Last Medication Dose Route Stop Time Status Admin Acetaminophen 650 MG .STK-MED ONE 12/16 2342 DC PO 12/16 2343 Acetaminophen 650 MG .STK-MED ONE 12/16 1700 DC PO 12/16 1701 Acetaminophen 650 MG .STK-MED ONE 12/16 0944 DC PO 12/16 0945 Acetaminophen 650 MG Q6P PRN 12/15 2330 AC 12/16 PO 2343 Acetaminophen 1,000 MG Q6P PRN 12/15 2330 AC 12/17 IV 0605 Amlodipine Besylate 2.5 MG DAILY 12/16 1000 AC 12/17 PO 0830 Atenolol 12.5 MG DAILY 12/16 1000 AC 12/17 PO 0830 Cefazolin Sodium 1,000 MG Q8H 12/16 0800 DC 12/16 IV 12/17 0001 2337 Cephalexin 500 MG Q6 12/17 0600 CAN PO 12/19 0559 Doxazosin Mesylate 4 MG DAILY 12/16 1000 AC 12/17 PO 0831 Escitalopram Oxalate 10 MG DAILY 12/16 1000 AC 12/17 PO 0830 Latanoprost 1 GTT AT BEDTIME 12/16 2200 AC 12/16 OPH 2123 Morphine Sulfate 2 MG Q6-PRN PRN 12/15 2345 AC IV Omeprazole 40 MG DAILY AC 12/16 0700 AC 12/17 PO 0532 Patient Medication 1 ED .STK-MED ONE 12/16 1352 DC Teaching ED 12/16 1353 Sodium Chloride 1,000 ML .[id number] 12/15 2330 DC 12/16 IV 12/16 1249 0028 Trazodone HCl 50 MG QPM 12/16 2200 AC 12/16 PO 2122 Assessment/Plan Assessment: Mr Banks is an 81 year old pleasant gentleman pmh for HTN, b/l glaucoma, Aortic aneurysm came to ED after an unwitnessed fall at home. Labs pertinent for leukocytosis, Macrocytosis. Imaging significant for nondisplaced fracture of posterolateral aspect of 7th rib and displaced medical epicondyle fracture. ED course: recieved Tetanus vaccine and given one dose of Ancef. Patient currently admitted in general medicine. #Open fracture of medial epicondyle of humerus Patient stable for discharge. Will ask to follow up with PCP and Dr Reyes. Currently s/p left humerus ORIF, Tolerated the surgery well. Per surgery will continue with 24 hours of IV antibiotics Cefazolin. Keep arm in splint and sling until seen by orthopedic surgeon, outpatient f/up with Dr. Reyes in one week upon discharge. Pain control with IV tyelenol and IV morphine PT and OT evaluation. Zofran for nausea. #Left rib fracture Adequate pain control Incentive spirometry, present at bedside encouraged use. #History of glaucoma Latanoprost 0.005% OPH solution 1 drop in both eyes. #Hypertension Continue home meds of Norvasc, Atenolol, Doxazosin and ASA #Fall Vit B12 Check orthostats. Last blood pressure 160/80 patient lying. 178/84 when patient sitting. #DVT prophylaxis SC heparin and ALPS #Disposition Likely will be discharged home need to ensure home is safe for patient to return to. #Full code status Problem List: 1. Fracture, humerus, medial epicondyle 2. Open fracture of medial epicondyle of humerus 3. Left rib fracture 4. Fall 5. Hypertension 6. DVT prophylaxis 7. Full code status Pain Ratin Pain Location: Left Lower Back Pain Goal: Remain pain free Pain Plan: Morphine PRN Tomorrow's Labs & Rationales: NA
[2016-12-17 07:40] VITALS: BP 164/88
[2016-12-17 08:30] VITALS: BP 164/88
[2016-12-17] MEDS ORDERED: PERCOCET 5-3251 EACH PO ×2 (10:22→10:25)
--- NOTE | 2016-12-17 13:04 | Discharge Summary ---
Visit Information Visit Dates Admission Date: 12/15/16 Discharge Date: 12/17/16 Hospital Course Course Attending Physician: Dr Gutierrez Primary Care Physician: Lisa LEE MD [facility] Course: Mr Banks is an 81 year old pleasant gentleman pmh for HTN, b/l glaucoma, Aortic aneurysm came to ED after an unwitnessed fall at home. Labs pertinent for leukocytosis, Macrocytosis. Imaging significant for nondisplaced fracture of posterolateral aspect of 7th rib and displaced medical epicondyle fracture. At the emrgency department the pateint recieved Tetanus vaccine and was given one dose of Ancef. Patient was immediately taken to the OR and subsequently admitted to General medicine for additional Care. Below is a summary of the care he receved under us. #Open fracture of medial epicondyle of humerus On day two of admision, he was stable and remained under our care, he tolerated the surgery well. Patient was continued on IV antibiotics from the time of admission until the day of discharge. He was sent home on 2 days of oral antibiotics for adequate coverage. He was given instructions to follow-up with Dr. Reyes in 1 week. Arm was kept in splint and sling. Pain control with IV tyelenol and IV morphine. Zofran was ordered for nausea. #History of glaucoma Latanoprost 0.005% OPH solution 1 drop in both eyes was ordered. #Hypertension The patient's home medications were continued: Norvasc, Atenolol, Doxazosin and ASA #DVT prophylaxis Patient was maintained on Sub Q heparin and ALPS #Full code status Allergies: Coded Allergies: No Known Allergies (12/15/16) Pertinent Lab Results: SERVICE DATE: 12/15/16 EXAM TYPE: RAD - XRY-ELBOW 3 OR MORE VIEWS, L EXAMINATION: XR ELBOW, LEFT CLINICAL INFORMATION: Open reduction and internal fixation of distal humerus fracture COMPARISON: Same day elbow exam TECHNIQUE: Fluoroscopic images of the left elbow, 4 images provided. Fluoroscopic assistance provided for Dr. Facundo Reyes. The KVP was 61. MAS is 1.8. The fluoroscopy time is 44.7 seconds. FINDINGS: A vertical fracture of the medial epicondyles of the distal humerus is transfixed with a lag screw. There is improved anatomic alignment on the final images. No other additional findings. IMPRESSION: Status post open reduction internal fixation of displaced medial epicondyle fracture. DICTATED BY: AUDRA VELAZCO MD SERVICE DATE: 12/15/16 EXAM TYPE: RAD - XRY-ELBOW 3 OR MORE VIEWS, L; XRY-RIBS BILATERAL EXAMINATION: XR RIBS, BILATERAL CLINICAL INFORMATION: Evaluate for a fracture status post fall. COMPARISON: Multiple priors, most recent CT chest dated 04/15/2014. TECHNIQUE: An AP view of the chest as well as oblique views of the right as well as the left ribs were obtained. AP, bilateral oblique, and lateral views of the left elbow were obtained. FINDINGS: RIBS: Lungs are clear. No consolidation, pneumothorax, or pleural effusion. The cardiomediastinal silhouette and pulmonary vasculature are normal. There is a nondisplaced fracture at the posterolateral aspect of the left seventh rib. No additional fracture is identified. No osseous erosion. LEFT ELBOW: There is a sagittally oriented fracture of the medial epicondyle with approximately 2-3 mm proximal displacement of the fracture fragment. Anterior displacement is noted on the oblique view. No additional fracture is identified. There is mild spurring at the proximal ulna and proximal radius. There is no osseous erosion. There is a small joint effusion. Focal soft tissue swelling is seen overlying the medial epicondyle. There is no abnormal soft tissue calcification. IMPRESSION: RIBS: 1. Nondisplaced fracture at the posterolateral aspect of the left seventh rib. LEFT ELBOW: 1. Mildly displaced, sagittally oriented fracture of the medial epicondyle. Overlying soft tissue swelling. 2. Small joint effusion. 3. Mild ulnotrochlear and radiocapitellar osteoarthritis. DICTATED BY: LUIZA WHITTINGTON MD Disposition Summary Disposition Principal Diagnosis: Open fracture of medial epicondyle of humerus Additional Diagnosis: History of hypertension History of glaucoma Discharge Disposition: home health services Discharge Instructions General Discharge Information Code Status: Full Code Patient's Diet: Heart Healthy Patient's Activity: As Tolerated Follow-Up Instructions/Appts: Please follow-up with your primary care physician within 7 days of discharge. Please inform your primary care physician of this admission to the hospital. Please follow-up with Dr. Reyes within 7 days. We have given you a referral. Medications at Discharge Discharge Medications: Continue taking these medications: Escitalopram Oxalate (Escitalopram Oxalate) 10 MG TABLET 1 Tablet ORAL DAILY Qty = 90 Comments: Last Taken: 12/17/16 Time: 0800 AM Doxazosin Mesylate (Doxazosin Mesylate) 4 MG TABLET 1 Tablet ORAL DAILY Qty = 90 Comments: Last Taken: 12/17/16 Time: 0800 AM Atenolol (Atenolol) 25 MG TABLET 0.5 Tablet ORAL DAILY Qty = 45 Comments: Last Taken: 12/17/16 Time: 0800 AM Amlodipine Besylate (Amlodipine Besylate) 2.5 MG TABLET 1 Tablet ORAL DAILY Qty = 90 Comments: Last Taken: 12/17/16 Time: 0800 AM Trazodone HCl (Trazodone HCl) 50 MG TABLET 1 Tablet ORAL Every night Qty = 30 Comments: Last Taken: 12/16/16 Time: 0930 PM Aspirin (Ecotrin*) 325 MG TABLET.DR 1 Tablet ORAL 2 times per week Comments: Last Taken: 12/17/16 Time: 0800 AM Start taking the following new medications: Cephalexin (Keflex) 500 MG CAPSULE 1 Capsule ORAL TWICE DAILY Qty = 2 No Refills Instructions: . Oxycodone HCl/Acetaminophen (Percocet 5-325 MG Tablet) 5 MG-325 MG TABLET 1 Tablet ORAL TWICE DAILY Qty = 10 No Refills Instructions: .. Copies To: FACUNDO REYES MD; Lisa LEE MD Copies To: FACUNDO REYES MD; Lisa LEE MD
== END 2016-12-17 10:55 | DRG 493 ==
LOC: ERH 16:41 → 2NB 19:08 → PACUH 21:19 → ERH 21:19 → ENRESERV 21:49 → ENTRNSPT 22:40 → 2NB 22:59 → PACUH 22:59 → CMPTRNSPT 12-16 07:46 → ENPENDDIS 12-17 10:23 → 2NB 12-17 10:55
PROVIDERS: Physician Assistant; Student in an Organized Health Care Education/Training Program; ADMIT Internal Medicine
PROC: 0PSD04Z Reposition Left Humeral Head with Internal Fixation Device, Open Approach (ICD-10-PCS; principal; 2016-12-15)
DX: S42.442B Displaced fracture (avulsion) of medial epicondyle of left humerus, initial encounter for open fracture (principal); S22.32XA Fracture of one rib, left side, initial encounter for closed fracture; I71.2 Thoracic aortic aneurysm, without rupture; I10 Essential (primary) hypertension; W10.9XXA Fall (on) (from) unspecified stairs and steps, initial encounter; Y93.9 Activity, unspecified; Y92.008 Other place in unspecified non-institutional (private) residence as the place of occurrence of the external cause; G47.00 Insomnia, unspecified; H91.90 Unspecified hearing loss, unspecified ear; H40.9 Unspecified glaucoma; M19.022 Primary osteoarthritis, left elbow
CPT/HCPCS: 2NBSP; 36415; 71111; 73080-LT; 82436; 90714; 93005; 93010; 96374; 96375; 97110-GO; 97116-GO; 97161-GP; 97165-GO; 97530-GO; C1713; J0131; J0690; J1170; J1644; J2175; J3010